=== PATIENT | female | born 1995 | race Caucasian/White ===

== ENCOUNTER 2024-03-24 00:07 | Inpatient (IN) | payer SELFPAY ==
[~2024-03-24 00:07] MED LIST: Bupivacaine 0.25% 10 ML SDV ONE; Ropivacaine 0.2% PF 2 MG/ML 20 ML SDV ONE
[2024-03-24] MEDS ORDERED: Ondansetron 4 MG/2 ML SDV IVPUSH PRN (02:44)
[2024-03-24] MEDS ORDERED: Lidocaine 1% 50 ML MDV INJECT PRN (02:44)
[2024-03-24] MEDS ORDERED: Oxytocin/0.9 % Sodium Chloride 30 UNIT/500 ML BAG IV SCH (02:45)
[2024-03-24 03:12] LABS: BASOPHILS PERCENT AUTO 0.2 % (0.0-1.0); HEMOGLOBIN 10.5 gm/dl (12.0-16.0); IMMATURE GRAN ABSOLUTE AUTO 0.01 K/mm3 (0.00-0.05); IMMATURE GRAN PERCENT AUTO 0.2 % (0.0-0.4); LYMPHOCYTES ABSOLUTE AUTO 1.6 K/mm3 (1.0-4.8); LYMPHOCYTES PERCENT AUTO 28.4 % (24.0-44.0); MEAN CORPUSCULAR HEMOGLOBIN 31.1 pg (28.0-32.0); MEAN CORPUSCULAR HGB CONC 33.9 g/dl (32.0-36.0); MEAN CORPUSCULAR VOLUME 91.7 fl (83.0-99.0); MEAN PLATELET VOLUME 10.9 fl (9.4-12.3); MONOCYTES ABSOLUTE AUTO 0.4 K/mm3 (0.0-0.8); MONOCYTES PERCENT AUTO 7.1 % (0.0-8.0); NEUTROPHILS ABSOLUTE AUTO 3.7 K/mm3 (1.8-7.7); NEUTROPHILS PERCENT AUTO 64.1 % (41.0-71.0); PLATELET COUNT,PLT 185 K/mm3 (150-400); RED BLOOD CELL COUNT 3.38 M/mm3 (4.10-5.30); WHITE BLOOD CELL COUNT,WBC 5.74 K/mm3 (3.9-11.3)
[2024-03-24 03:33] LABS: CREATININE,URINE RAND 52.8 mg/dL (30.0-125.0); PROTEIN CREATININE RATIO,URINE 386.4 mg/g (0-149); PROTEIN,URINE RANDOM 20.4 mg/dL (0.0-11.8)
[2024-03-24 03:42] LABS: A/G RATIO 0.7 (1-2); ALBUMIN 2.9 g/dl (3.4-5.0); BILIRUBIN TOTAL 0.4 mg/dL (0.2-1.0); CALCIUM 8.7 mg/dL (8.5-10.1); CREATININE 0.8 mg/dL (0.55-1.02); EST CRCL DRUG DOSING (CG) 79.71 mL/min
[2024-03-24] MEDS: Nalbuphine 10 MG/1 ML Vial IVPUSH PRN (04:00)
[2024-03-24] MEDS: Lactated Ringers 1,000 ML IV SCH (05:36)
[2024-03-24] MEDS: Oxytocin/0.9 % Sodium Chloride 30 UNIT/500 ML BAG IV SCH (11:48)
[2024-03-24] MEDS ORDERED: ePHEDrine 50 MG/ML SDV IVPUSH PRN (15:29)
[2024-03-24] MEDS ORDERED: diphenhydrAMINE 50 MG/ML SDV IVPUSH PRN (15:29)
[2024-03-24] MEDS: fentaNYL 100 MCG/2 ML SDV EPIDUR PRN (15:34)
[2024-03-24] MEDS: Bupivacaine/fentaNYL/NS 100 ML Bag EPIDUR PRN (15:35)
[2024-03-24] MEDS: Acetaminophen 325 MG Tab PO PRN (22:13)
[2024-03-24] MEDS: Ampicillin 2 GM in Sodium Chloride 0.9% 100 ML IV SCH (22:16)
[2024-03-24] MEDS ORDERED: Sodium Chloride 0.9% 10 ML Syringe FLUSH PRN (22:39)
[2024-03-24 22:42] LABS: BASOPHILS PERCENT AUTO 0.2 % (0.0-1.0); EOSINOPHILS PERCENT AUTO 0.2 % (0.0-6.0); HEMATOCRIT 34.1 % (37.0-47.0); HEMOGLOBIN 11.1 gm/dl (12.0-16.0); IMMATURE GRAN ABSOLUTE AUTO 0.02 K/mm3 (0.00-0.05); IMMATURE GRAN PERCENT AUTO 0.2 % (0.0-0.4); LYMPHOCYTES ABSOLUTE AUTO 1.3 K/mm3 (1.0-4.8); LYMPHOCYTES PERCENT AUTO 14.8 % (24.0-44.0); MEAN CORPUSCULAR HEMOGLOBIN 30.7 pg (28.0-32.0); MEAN CORPUSCULAR HGB CONC 32.6 g/dl (32.0-36.0); MEAN CORPUSCULAR VOLUME 94.5 fl (83.0-99.0); MEAN PLATELET VOLUME 10.3 fl (9.4-12.3); MONOCYTES ABSOLUTE AUTO 0.6 K/mm3 (0.0-0.8); MONOCYTES PERCENT AUTO 7.2 % (0.0-8.0); NEUTROPHILS ABSOLUTE AUTO 6.5 K/mm3 (1.8-7.7); NEUTROPHILS PERCENT AUTO 77.4 % (41.0-71.0); PLATELET COUNT,PLT 176 K/mm3 (150-400); RED BLOOD CELL COUNT 3.61 M/mm3 (4.10-5.30); WHITE BLOOD CELL COUNT,WBC 8.44 K/mm3 (3.9-11.3)
[2024-03-24] MEDS: Gentamicin 270 MG in Sodium Chloride 0.9% 100 ML IV SCH (22:44)
[2024-03-24] MEDS ORDERED: Lactated Ringers 1,000 ML IV SCH (22:45)
[2024-03-24] MEDS ORDERED: Phenylephrine 1% 10 MG/ML SDV ONE (22:51)
[2024-03-24] MEDS ORDERED: Ondansetron 4 MG/2 ML SDV ONE (22:51)
[2024-03-24] MEDS ORDERED: Lidocaine 2% with EPINEPHrine 1:200,000 20 ML SDV ONE (22:51)
[2024-03-24] MEDS ORDERED: fentaNYL 100 MCG/2 ML SDV ONE (22:51)
[2024-03-24] MEDS: Azithromycin 500 MG in Sodium Chloride 0.9% 250 ML IV ONE (22:54)
[2024-03-24] MEDS: Clindamycin Phosphate in D5W 900 MG in Premix Bag 1 BAG IV ONE (22:58)
[2024-03-24] MEDS: Citric Acid/Sodium Citrate Solution 30 ML Cup PO ONE (22:58)
[2024-03-24] MEDS: Metoclopramide 10 MG/2 ML SDV IVPUSH ONE (22:58)
[2024-03-24 23:13] LABS: A/G RATIO 0.7 (1-2); ALBUMIN 2.7 g/dl (3.4-5.0); ANION GAP 15.1 (5-15); BILIRUBIN TOTAL 0.5 mg/dL (0.2-1.0); CALCIUM 8.8 mg/dL (8.5-10.1); EST CRCL DRUG DOSING (CG) 63.77 mL/min; POTASSIUM,K 4.1 mEq/L (3.5-5.1); PROTEIN TOTAL,TP 6.6 g/dl (6.4-8.2)
[2024-03-24] MEDS ORDERED: ceFAZolin 2 GM Vial ONE (23:29)
[2024-03-24] MEDS ORDERED: dexmedeTOMIDine HCl 200 MCG/2 ML SDV ONE (23:52)
[2024-03-24] MEDS ORDERED: Ketorolac 30 MG/ML SDV ONE (23:54)
[2024-03-25] MEDS ORDERED: Morphine PF 10 MG/10 ML SDV ONE (00:03)
[2024-03-25] MEDS ORDERED: diphenhydrAMINE 50 MG/ML SDV IVPUSH PRN ×2 (00:31→02:02)
[2024-03-25] MEDS ORDERED: Ondansetron 4 MG/2 ML SDV IVPUSH PRN (00:31)
[2024-03-25] MEDS ORDERED: fentaNYL 100 MCG/2 ML SDV IVPUSH PRN (00:31)
[2024-03-25] MEDS ORDERED: Meperidine 50 MG/ML Vial IVPUSH PRN (00:31)
[2024-03-25] MEDS ORDERED: Naloxone 0.4 MG/ML SDV IVPUSH PRN (02:02)
[2024-03-25] MEDS ORDERED: ePHEDrine 50 MG/ML SDV IVPUSH PRN (02:02)
[2024-03-25] MEDS: ceFAZolin 2 GM in Sodium Chloride 0.9% 50 ML IV ONE (02:20)
[2024-03-25] MEDS: Dextrose 5%-Lactated Ringers 1,000 ML IV SCH (03:19)
[2024-03-25] MEDS: Ibuprofen 600 MG Tab PO SCH (05:44)
[2024-03-25 06:24] LABS: BASOPHILS PERCENT AUTO 0.1 % (0.0-1.0); HEMATOCRIT 24.8 % (37.0-47.0); IMMATURE GRAN ABSOLUTE AUTO 0.03 K/mm3 (0.00-0.05); IMMATURE GRAN PERCENT AUTO 0.3 % (0.0-0.4); LYMPHOCYTES ABSOLUTE AUTO 1.4 K/mm3 (1.0-4.8); LYMPHOCYTES PERCENT AUTO 13.8 % (24.0-44.0); MEAN CORPUSCULAR HEMOGLOBIN 30.7 pg (28.0-32.0); MEAN CORPUSCULAR HGB CONC 32.7 g/dl (32.0-36.0); MEAN CORPUSCULAR VOLUME 93.9 fl (83.0-99.0); MEAN PLATELET VOLUME 10.3 fl (9.4-12.3); MONOCYTES ABSOLUTE AUTO 0.6 K/mm3 (0.0-0.8); NEUTROPHILS ABSOLUTE AUTO 8.2 K/mm3 (1.8-7.7); NEUTROPHILS PERCENT AUTO 79.8 % (41.0-71.0); PLATELET COUNT,PLT 146 K/mm3 (150-400); RED BLOOD CELL COUNT 2.64 M/mm3 (4.10-5.30); WHITE BLOOD CELL COUNT,WBC 10.33 K/mm3 (3.9-11.3)
[2024-03-25 06:29] LABS: HEMOGLOBIN 8.1 gm/dl (12.0-16.0)
[2024-03-25 06:59] LABS: A/G RATIO 0.6 (1-2); ALBUMIN 1.8 g/dl (3.4-5.0); BILIRUBIN TOTAL 0.4 mg/dL (0.2-1.0); CALCIUM 7.7 mg/dL (8.5-10.1); CREATININE 1.1 mg/dL (0.55-1.02); EST CRCL DRUG DOSING (CG) 57.97 mL/min; PROTEIN TOTAL,TP 4.6 g/dl (6.4-8.2)
[2024-03-25] MEDS ORDERED: Sodium Chloride 0.9% 10 ML Syringe FLUSH SCH (09:00)
[2024-03-25] MEDS: Prenatal Multivitamin with Calcium/Folic Acid/Iron Tab PO SCH (13:15)
[2024-03-25] MEDS: Sennosides 8.6 MG Tab PO SCH (20:41)
[2024-03-25] MEDS: Docusate Sodium 100 MG Cap PO PRN (22:58)
[2024-03-25] MEDS: oxyCODONE 5 MG Tab PO PRN (22:58)
[2024-03-26] MEDS: Ferrous Sulfate 324 MG Tab.EC PO SCH (07:03)
[2024-03-26] MEDS: Ibuprofen 600 MG Tab PO SCH (21:55)
== END 2024-03-27 13:31 | disposition home or self-care (01) | DRG 786 ==
LOC: JD.OBCHECK 00:07 → JD.OB 00:15 → JD.OBCHECK 02:44 → JD.MS 08:57 → JD.OB 08:58 → OBSVTOIN 23:47 → JD.OB 23:48
PROVIDERS: ADMIT Obstetrics & Gynecology; ATTEND Obstetrics & Gynecology
PROC: 10H07YZ Insertion of Other Device into Products of Conception, Via Natural or Artificial Opening (ICD-10-PCS; 2024-03-24)
PROC: 10907ZC Drainage of Amniotic Fluid, Therapeutic from Products of Conception, Via Natural or Artificial Opening (ICD-10-PCS; 2024-03-24)
PROC: 10D00Z1 Extraction of Products of Conception, Low, Open Approach (ICD-10-PCS; principal; 2024-03-24 23:20)
DX: O14.04 Mild to moderate pre-eclampsia, complicating childbirth (principal); O41.1230 Chorioamnionitis, third trimester, not applicable or unspecified; D62 Acute posthemorrhagic anemia; Z3A.40 40 weeks gestation of pregnancy; Z37.0 Single live birth; O76 Abnormality in fetal heart rate and rhythm complicating labor and delivery; O90.81 Anemia of the puerperium; O77.0 Labor and delivery complicated by meconium in amniotic fluid
CPT/HCPCS: 36415; 51702; 59025; 59409; 80053; 82570; 83605; 83615; 84156; 85025; 86592; 94762; A9270-GY; J0290; J0456; J0665; J0690; J0736; J1580; J1885; J2274; J2300; J2371; J2405; J2765; J2795; J3010; J3490; J7050; J7120; J7121; J7999